=== PATIENT | female | born 1990 | race Caucasian/White ===

== ENCOUNTER 2020-12-26 04:30 | Emergency (ER) | payer BC, SELFPAY ==
[2020-12-26] VITALS (8 sets, daily range): BP systolic 113–146; BP diastolic 57–89; PULSE 82–102; RESP 13–22; TEMP 36.6; O2SAT 95–99
--- NOTE | ~2020-12-26 | XR_ITS ---
EXAMINATION: XR chest 2V DATE: 12/26/2020 05:35 INDICATION: Cough TECHNIQUE: PA and lateral views of the chest are obtained. COMPARISON: None available FINDINGS: The lungs are free of acute opacities. There is no pleural effusion or pneumothorax. The ca rdiomediastinal silhouette is normal. The visualized bones and soft tissues are unremarkable. IMPRESSION: 1. No acute cardiopulmonary abnormality. Reviewed, dictated and finalized at location A.
--- NOTE | 2020-12-26 04:42 | ED.GENADULT ---
HPI - General Adult General Chief complaint: Upper Respiratory Infection Stated complaint: Cough, unable to sleep Time Seen by Provider: 12/26/20 04:36 History of Present Illness HPI narrative: Patient is a 30-year-old female presents the emergency department with chief complaint of cough. Patient reports that about 2 weeks ago she started having a cough that was nonproductive and having a bronchospastic cough. Patient states she has been unable to get rest reports she was seen in urgent care and given a Z-Mickey and has had no improvement. The patient reports she is completed the Z-Mickey is not taking anything for the cough reports has not been vaccinated for Covid and not been tested for Covid. Patient does report that she smokes cigarettes Related Data Allergies Allergy/AdvReac Type Severity Reaction Status Date / Time No Known Allergies Allergy Verified 12/26/20 04:31 Review of Systems Review of Systems: A 10 system review of systems was completed on the patient and is negative except for what is stated in the HPI. Nursing and ancillary documentation was reviewed. Exam Narrative: GENERAL: Well-appearing, well-nourished, and in no acute distress. HEAD: Normocephalic, atraumatic. EYES: PERRLA and EOMI. ENT: Nares clear, no rhinorrhea or epistaxis. Mucous membranes moist. NECK: Supple. CHEST: Clear to auscultation. No respiratory distress. HEART: Regular rate and rhythm. No murmur heard. Normal peripheral pulses. ABDOMEN: Soft, nontender, nondistended, normal active bowel sounds. EXTREMITIES: Normal range of motion. No edema. SKIN: Warm, dry, no rash. NEURO: No focal deficits. Alert and oriented x3. PSYCH: Normal mood and affect. Course Vital Signs Vital signs: Vital Signs Temperature 36.6 C 12/26/20 04:37 Pulse Rate 100 12/26/20 04:37 Respiratory Rate 14 12/26/20 04:37 Blood Pressure 139/89 12/26/20 04:37 Pulse Oximetry 96 12/26/20 04:37 Temperature 36.6 C 12/26/20 04:37 Pulse Rate 82 12/26/20 05:37 Respiratory Rate 13 12/26/20 05:37 Blood Pressure 113/64 12/26/20 05:37 Pulse Oximetry 96 12/26/20 05:37 Medical Decision Making Vital Signs Vital Signs: Vital Signs Temperature 36.6 C 12/26/20 04:37 Pulse Rate 100 12/26/20 04:37 Respiratory Rate 14 12/26/20 04:37 Blood Pressure 139/89 12/26/20 04:37 Pulse Oximetry 96 12/26/20 04:37 Temperature 36.6 C 12/26/20 04:37 Pulse Rate 82 12/26/20 05:37 Respiratory Rate 13 12/26/20 05:37 Blood Pressure 113/64 12/26/20 05:37 Pulse Oximetry 96 12/26/20 05:37 Lab Data Labs: Lab Results 12/26/20 Range/Units 04:50 SARS-CoV-2 RNA (RT-PCR) Pending Influenza A Screen Negative Reference Range: Negative Influenza B Screen Negative Reference Range: Negative Strep Screen Presumptive Negative *(Reference Range: Negative)* Discharge Plan Discharge Clinical Impression: Acute bacterial bronchitis Patient Disposition: Home, Self-Care Condition: Stable Instructions: Antibiotic Form, Acute Bronchitis (ED) Prescriptions: New methylprednisolone [Medrol (Mickey)] 4 mg tablets,dose pack See Rx Instructions PO .COMPLEX Qty: 21 RF: 0 benzonatate 200 mg capsule 200 mg PO TID PRN (Reason: cough) Qty: 21 RF: 0 doxycycline hyclate 100 mg tablet 100 mg PO BID Qty: 14 RF: 0 albuterol sulfate 90 mcg/actuation HFA aerosol inhaler 2 puff inhalation QID PRN (Reason: shortness of breath or wheezing) Qty: 8.5 RF: 0 Follow-up/Referrals: PHYSICIAN NOT ON STAFF,NONSTAFF [Primary Care Provider] - Time of Disposition: 05:49
[2020-12-26] MEDS: predniSONE 20 MG TABLET 60 MG PO (04:49)
[2020-12-26] MEDS: ALBUTEROL SULFATE (*SP) INHALER 2 PUFF INHALATION (04:53)
[2020-12-26] MEDS: BENZONATATE 100 MG CAPSULE 200 MG PO (04:58)
[2020-12-27 20:00] LABS: SARS-CoV-2 RNA PCR Negative
== END 2020-12-26 05:58 | disposition home or self-care (01) ==
PROVIDERS: Emergency Provider Emergency Medicine
DX: J20.9 Acute bronchitis, unspecified (principal); Z20.822 Contact with and (suspected) exposure to COVID-19
CPT/HCPCS: 71046; 87081; 87804; 87880; 99283; A9270; C9803; J7512; U0003; U0005